=== PATIENT | female | born 1990 | race Caucasian/White ===

== ENCOUNTER 2024-10-19 14:47 | Emergency (ER) | payer OTHER ==
[~2024-10-19] VITALS: Ht 162.6 cm; Wt 43.1 kg
[2024-10-19 15:27] VITALS: TEMP 98.1
[2024-10-19 15:31] LABS: PLATELET COUNT (AUTO) 297 K/uL (150-450); RED BLOOD CELL COUNT(AUTO) 4.07 MIL/uL (4.0-5.2); RED CELL DISTRIBUTION WIDTH 12.3 % (11.5-15.0); WHITE BLOOD COUNT (AUTO) 7.0 K/uL (4.3-11.0)
[2024-10-19 15:47] LABS: ASPARTATE AMINOTRANSFERASE 13 U/L (15-37); CALCIUM, SERUM 8.7 mg/dL (8.5-10.1); CREATININE 0.8 mg/dL (0.6-1.3); SODIUM SERUM 141 mmol/L (136-145); TOTAL PROTEIN, SERUM 7.0 g/dL (6.4-8.2); UREA NITROGEN, BLOOD 9 mg/dL (7-18)
[2024-10-19] MEDS ORDERED: MECLIZINE HCL 25 MG TABLET ONE (16:32)
[2024-10-19] MEDS: Thiamine 100 MG in IV D5W 50 ML IV ONE (16:45)
[2024-10-19] MEDS: IV LR 1000 ML 1,000 ML BAG IV ONE (16:46)
[2024-10-19] MEDS: MECLIZINE HCL 25 MG TABLET PO ONE (16:46)
[2024-10-19 18:32] VITALS: BP 112/70; O2SAT 99
== END 2024-10-19 18:39 | disposition home or self-care (01) ==
LOC: ER 14:47
DX: R42 Dizziness and giddiness (principal); R07.9 Chest pain, unspecified; G47.00 Insomnia, unspecified; R10.2 Pelvic and perineal pain
CPT/HCPCS: 99285; 96365; 71045; 93005; 85025; 80048; 80076; 36415; 84484; 84702; J8597; J7060; J7120 ×2; J3411